=== PATIENT | male | born 1945 | race Caucasian/White ===

== ENCOUNTER 2025-03-21 12:36 | Emergency (ER) | payer OTHER ==
[~2025-03-21] VITALS: Ht 175.3 cm; Wt 68.0 kg
== END 2025-03-21 17:20 | disposition home or self-care (01) ==
LOC: ER 12:36
DX: S00.83XA Contusion of other part of head, initial encounter (principal); S80.01XA Contusion of right knee, initial encounter; J44.9 Chronic obstructive pulmonary disease, unspecified; J43.9 Emphysema, unspecified; W18.30XA Fall on same level, unspecified, initial encounter
CPT/HCPCS: 71046; 73562-RT; 99284-25